=== PATIENT | male | born 1955 | race Caucasian/White ===

== ENCOUNTER 2017-01-23 10:07 | Emergency (ER) | payer OTHER ==
[2017-01-23 10:10] VITALS: BMI 21.2
--- NOTE | 2017-01-23 10:26 | PDOC ---
History of Present Illness - General Chief Complaint: Respiratory Stated Complaint: COUGH Time Seen by Provider: 01/23/17 10:25 - History of Present Illness Initial Comments: 61 year with PMH of allergies (dust, pollen) and asthma (rare inhaler usage) presenting with Coryza and dry cough for the past week that has recently become productive of green sputum. He completed a Z-Pack yesterday prescribed by his wax specialist. PCP is Allyson Feliciano. Denies fever, chills, nausea, vomiting , diarrhea, constipation, chest pain, or other sick symptoms. Denies inhaler usage. 01/23/17 10:58 Past History - Past Medical History Allergies/Adverse Reactions: Allergies Allergy/AdvReac Type Severity Reaction Status Date / Time No Known Allergies Allergy Verified 01/23/17 10:10 Home Medications: Ambulatory Orders Inhaler, Assist Devices [Space Chamber Plus] 1 each MC DAILY #1 spacer 12/23/14 Montelukast Na [Singulair -] 10 mg PO HS 12/23/14 Albuterol Sulfate Inhaler - [Ventolin HFA Inhaler -] 1 - 2 inh PO Q4H PRN #1 inhaler 01/23/17 Prednisone [Deltasone -] 40 mg PO DAILY 4 Days #8 tablet 01/23/17 Asthma: Yes COPD: No - Surgical History Abdominal Surgery: Yes (HERNIA) - Suicide/Smoking/Psychosocial Hx Smoking History: Never smoked Number of Cigarettes Smoked Daily: 0 Hx Alcohol Use: No Drug/Substance Use Hx: No *Physical Exam - Vital Signs Last Vital Signs Temp Pulse Resp BP Pulse Ox 97.8 F 85 22 120/63 100 01/23/17 10:07 01/23/17 10:07 01/23/17 10:07 01/23/17 10:07 01/23/17 10:07 *DC/Admit/Observation/Transfer Diagnosis at time of Disposition: Bronchitis - Discharge Dispostion Disposition: HOME Condition at time of disposition: Improved Admit: No - Prescriptions Prescriptions: Albuterol Sulfate Inhaler - [Ventolin HFA Inhaler -] 1 - 2 inh PO Q4H PRN #1 inhaler PRN Reason: Short Of Breath/Wheezing Prednisone [Deltasone -] 40 mg PO DAILY 4 Days #8 tablet - Referrals Referrals: Allyson Feliciano MD [Primary Care Provider] - - Patient Instructions Additional Instructions: Please take your inhaler up to every four hours if you are feeling short of breath. Please take your steroids 40 MG every day for 4 days. Please follow up with your primary care physician and please return to the ED if you have worsening symptoms, fevers, nausea, vomiting, or lightheadedness. - Post Discharge Activity
--- NOTE | 2017-01-23 10:30 | PDOC ---
Attending Attestation - HPI HPI: 01/23/17 11:32 61 y/o M with a PMHx of asthma presents to the ED with a cough for a week. Patient saw his fresh food manager who prescribed him a Z-pack, which he completed yesterday, with no relief. He reports his cough became productive yesterday and has been coughing up green sputum. No other complaints. He denies fever, chills , nausea, vomiting, diarrhea. Denies night sweats. <No Salcedo - Last Filed: 01/23/17 11:32> - Resident Resident Name: KingsleyDonaldcarlazabrina - ED Attending Attestation I have performed the following: I have examined & evaluated the patient, The case was reviewed & discussed with the resident, I agree w/resident's findings & plan, Exceptions are as noted - Physicial Exam PE: GENERAL: Awake, alert, and fully oriented, in no acute distress HEAD: No signs of trauma EYES: PERRLA, EOMI, sclera anicteric, conjunctiva clear ENT: Auricles normal inspection, hearing grossly normal, nares patent, oropharynx clear without exudates. Moist mucosa NECK: Normal ROM, supple, no lymphadenopathy, JVD, or masses LUNGS: Slightly decreased air entry B/L. Breath sounds equal, clear to auscultation bilaterally. No wheezes, and no crackles HEART: Regular rate and rhythm, normal S1 and S2, no murmurs, rubs or gallops ABDOMEN: Soft, nontender, normoactive bowel sounds. No guarding, no rebound. No masses EXTREMITIES: Normal range of motion, no edema. No clubbing or cyanosis. No cords, erythema, or tenderness NEUROLOGICAL: Cranial nerves II through XII grossly intact. Normal speech, normal gait SKIN: Warm, Dry, normal turgor, no rashes or lesions noted. - Medical Decision Making Pt with prior history of asthma, presenting with cough s/p recent antibiotics. He feels as if he gets out of breath quickly when he ambulates. Denies wheezing. CXR negative. Will administer duoneb and reassess with ambulation. <Yolie Meyer - Last Filed: 01/23/17 13:12>
[2017-01-23] MEDS ORDERED: ALBUTEROL SO4 2.5/IPRATROPIUM 0.5 INH SOL 3 ML VIAL.NEB. NEB ONE (13:00)
[2017-01-23 14:12] VITALS: BP 127/81; PULSE 81; TEMP 98
== END 2017-01-23 14:00 | disposition home or self-care (01) ==
LOC: JER 10:07
PROC: 3E0F7GC Introduction of Other Therapeutic Substance into Respiratory Tract, Via Natural or Artificial Opening (ICD-10-PCS; principal; 2017-01-23)
DX: J40 Bronchitis, not specified as acute or chronic (principal); J00 Acute nasopharyngitis [common cold]
CPT/HCPCS: 71020-TC; 94640; 99284-25

== ENCOUNTER 2017-06-16 21:37 | Emergency (ER) | payer OTHER ==
--- NOTE | 2017-06-16 22:00 | PDOC ---
Rapid Medical Evaluation Time Seen by Provider: 06/16/17 21:58 Medical Evaluation: Allergies Allergy/AdvReac Type Severity Reaction Status Date / Time No Known Allergies Allergy Verified 01/23/17 10:10 06/16/17 21:58 I have performed a brief in-person evaluation of this patient. The patient presents with a chief complaint of: right molar pain Pertinent physical exam findings: no palpable abscess I have ordered the following: nothing The patient will proceed to the ED for further evaluation. Discharge Disposition - Diagnosis Toothache - Referrals - Patient Instructions - Post Discharge Activity
[2017-06-16 22:11] VITALS: BP 138/77; PULSE 67; TEMP 98.1; BMI 23.6
--- NOTE | 2017-06-16 23:56 | PDOC ---
History of Present Illness - General Chief Complaint: Toothache Stated Complaint: TOOTHACHE Time Seen by Provider: 06/16/17 21:58 History Source: Patient Exam Limitations: No Limitations - History of Present Illness Initial Comments: 06/16/17 23:54 This 62-year-old man who presents emergency Department with toothache to his right lower molar for the past 5 days. Patient states she was seen and evaluated by his dentist gave him antibiotics as the abscess was not able to be drained at that time. His dentist changes antibiotics from penicillin to clindamycin yesterday with minimal relief of symptoms. Patient has an appointment with his dentist for definitive treatment of this abscess. Past History - Past Medical History Allergies/Adverse Reactions: Allergies Allergy/AdvReac Type Severity Reaction Status Date / Time No Known Allergies Allergy Verified 01/23/17 10:10 Home Medications: Ambulatory Orders Clindamycin [Cleocin -] 600 mg PO Q6H 06/16/17 Ibuprofen [Motrin -] 600 mg PO QID PRN 06/16/17 Oxycodone HCl/Acetaminophen [Percocet 5-325 mg Tablet] 1 tab PO Q6H #10 tablet MDD 4 06/16/17 Asthma: Yes COPD: No - Surgical History Abdominal Surgery: Yes (HERNIA) - Suicide/Smoking/Psychosocial Hx Smoking History: Never smoked Number of Cigarettes Smoked Daily: 0 Hx Alcohol Use: No Drug/Substance Use Hx: No Review of Systems - Review of Systems Able to Perform ROS?: Yes Is the patient limited Panamanian proficient: No Constitutional: No: Symptoms Reported HEENTM: Yes: See HPI Respiratory: No: Symptoms reported Cardiac (ROS): No: Symptoms Reported ABD/GI: No: Symptoms Reported : No: Symptoms Reported Musculoskeletal: No: Symptoms Reported Integumentary: No: Symptoms Reported Neurological: No: Symptoms reported *Physical Exam - Vital Signs Last Vital Signs Temp Pulse Resp BP Pulse Ox 98.1 F 67 18 138/77 98 06/16/17 22:09 06/16/17 22:09 06/16/17 22:09 06/16/17 22:09 06/16/17 22:09 - Physical Exam General Appearance: Yes: Appropriately Dressed. No: Apparent Distress HEENT: positive: Other (Tenderness to palpation on the buccal surface of the gingiva of tooth #31) Neck: positive: Tender, Supple. negative: Stridor Respiratory/Chest: positive: Lungs Clear, Normal Breath Sounds. negative: Respiratory Distress, Accessory Muscle Use Neurologic: positive: hand tier II-XII NML intact, Alert, Normal Response Medical Decision Making - Medical Decision Making 06/16/17 23:56 A/P: 62-year-old male with toothache on tooth #31 Tenderness to palpation on the buccal surface of the gingiva at tooth #31 No palpable fluctuant areas noted No obvious dental caries present Dental abscess Inferior alveolar block Discharge with prescription for Percocet *DC/Admit/Observation/Transfer Diagnosis at time of Disposition: Toothache - Discharge Dispostion Disposition: HOME Condition at time of disposition: Stable Decision to Admit order: No - Prescriptions Prescriptions: Oxycodone HCl/Acetaminophen [Percocet 5-325 mg Tablet] 1 tab PO Q6H #10 tablet MDD 4 - Referrals Referrals: Allyson Feliciano MD [Primary Care Provider] - - Patient Instructions Additional Instructions: Take antibiotics as previously prescribed by her dentist. Keep appointment with your dentist to have the tooth treated. Take Percocet one tablet every 6 hours as needed for pain. Return to emergency department for any concerns. - Post Discharge Activity
--- NOTE | 2017-06-17 00:03 | PDOC ---
*Physical Exam - Vital Signs Last Vital Signs Temp Pulse Resp BP Pulse Ox 98.1 F 67 18 138/77 98 06/16/17 22:09 06/16/17 22:09 06/16/17 22:09 06/16/17 22:09 06/16/17 22:09 Medical Decision Making - Medical Decision Making 06/17/17 00:02 agree with care from VICKI Hart *DC/Admit/Observation/Transfer Diagnosis at time of Disposition: Toothache - Discharge Dispostion Disposition: HOME Condition at time of disposition: Stable - Prescriptions Prescriptions: Oxycodone HCl/Acetaminophen [Percocet 5-325 mg Tablet] 1 tab PO Q6H #10 tablet MDD 4 - Referrals Referrals: Allyson Feliciano MD [Primary Care Provider] - - Patient Instructions Additional Instructions: Take antibiotics as previously prescribed by her dentist. Keep appointment with your dentist to have the tooth treated. Take Percocet one tablet every 6 hours as needed for pain. Return to emergency department for any concerns. - Post Discharge Activity
== END 2017-06-17 00:10 | disposition home or self-care (01) ==
LOC: JER 21:37
DX: K04.7 Periapical abscess without sinus (principal); Z87.09 Personal history of other diseases of the respiratory system
CPT/HCPCS: 99281-25